=== PATIENT | female | born 1985 | race Hispanic/Latino ===

== ENCOUNTER 2019-09-04 15:48 | Outpatient (CLI) | payer OTHER ==
--- NOTE | 2019-09-04 16:35 | ULT ---
Obstetric sonogram HISTORY: evaluation. Second trimester gestation. FINDINGS: Single intrauterine gestation in breech presentation. Grade 0 placenta is posterior. Amniot ic fluid is within normal limits. Four-chamber heart motion at 147 bpm. Three-vessel cord shows a normal insertion. spine and kidneys are intact as visualized. No glenn s intracranial abnormalities are apparent. Measurements are as follows: Biparietal diameter 21 weeks 5 days Head circumference 22 weeks 2 days Abdominal circumference 22 weeks 4 days Femur length 23 weeks 3 days Estimated date of delivery based on today's sonogram 01/04/2020. IMPRESSION: Single viable intrauterine. Estimated gestational age 22 weeks 4 days.
== END 2019-09-04 15:49 | disposition home or self-care (01) ==
LOC: BICULT 15:48
PROVIDERS: ATTEND Family Medicine
DX: O09.522 Supervision of elderly multigravida, second trimester (principal); Z3A.22 22 weeks gestation of pregnancy
CPT/HCPCS: 76805

== ENCOUNTER 2019-11-26 14:27 | Emergency (ER) | payer OTHER ==
[2019-11-26 15:22] LABS: #Basophils 0.1 thou/uL (0.0-0.2); #Eosinphils 0.1 thou/uL (0.0-0.7); #Lymphocytes 2.6 thou/uL (1.20-3.40); #Monocytes 0.7 thou/uL (0.11-0.59); #Neutrophils 9.2 thou/uL (1.40-6.50); %Basophils 0.6 % (0.0-1.0); %Lymphocytes 20.4 % (21.0-51.0); %Monocytes 5.2 % (0.0-10.0); %Neutrophils 72.7 % (42.0-75.0); Hemoglobin 10.4 g/dL (12.0-16.0); Mean Corpuscular HGB CONC 32.9 g/dL (32.0-36.0); Mean Corpuscular Hemoglobin 26.1 pg (27.0-31.0); Mean Corpuscular Volume 79.3 fL (78.0-98.0); Mean Platelet Volume 8.5 fL (7.4-10.4); Platelet Count 217 thou/uL (130-400); RBC Distribution Width 14.8 % (11.5-14.5); Red Blood Cell (RBC) Count 3.99 mill/uL (4.20-5.40); White Blood Cell (WBC) Count 12.7 thou/uL (4.8-10.8)
[2019-11-26 15:38] LABS: BHCG - Serum POSITIVE (NEGATIVE); Pregs Control Background? CLEAR/WHITE (CLR/WHITE); Pregs Control Bar Appear? YES (CONTROL BAR)
[2019-11-26 15:43] LABS: ALT (SGPT) 8 U/L (8-55); AST (SGOT) 13 U/L (5-34); Albumin 3.6 g/dL (3.5-5.0); Alkaline Phosphatase 113 U/L (40-110); Anion Gap 13 mmol/L (10-20); BUN (Urea Nitrogen) 5 mg/dL (7.0-18.7); Bilirubin, Total 0.3 mg/dL (0.2-1.2); Calc. Creatinine Clearance 0 mL/min (70-130); Calcium 9.4 mg/dL (7.8-10.44); Carbon Dioxide 21 mmol/L (22-29); Chloride 106 mmol/L (98-107); Estimated GFR-MDRD Greater than 90; Globulin 3.3 g/dL (2.4-3.5); Glucose 93 mg/dL (70-105); Magnesium 1.7 mg/dL (1.6-2.6); Potassium 3.8 mmol/L (3.5-5.1); Protein, Total 6.9 g/dL (6.0-8.3); Sodium 136 mmol/L (136-145)
[2019-11-26 15:59] LABS: Thyroid Stimulating Hormone 0.9202 uIU/mL (0.35-4.94)
--- NOTE | 2019-11-26 16:13 | RAD ---
PORTABLE CHEST: History: Tachycardia. FINDINGS: The heart size and mediastinum are within normal limits. The lungs are clear of any infiltrates. No s ignificant bony findings. IMPRESSION: No active intrathoracic disease. POS: [facility]
== END 2019-11-26 17:00 | disposition home or self-care (01) ==
LOC: ERS 14:27
DX: O99.413 Diseases of the circulatory system complicating pregnancy, third trimester (principal); I49.3 Ventricular premature depolarization; O24.419 Gestational diabetes mellitus in pregnancy, unspecified control; Z3A.35 35 weeks gestation of pregnancy
CPT/HCPCS: 36415; 71045; 80053; 83735; 84443; 84703; 85025; 93005; 94760

== ENCOUNTER 2019-12-22 07:10 | Outpatient (CLI) | payer OTHER ==
[2019-12-23 12:17] LABS: SARS-CoV-2 MS2 Positive; SARS-CoV-2 N Gene Positive; SARS-CoV-2 S Gene Positive; SARS-CoV-2 orf1ab Positive
== END 2019-12-22 07:11 | disposition home or self-care (01) ==
LOC: LABSCS 07:10
PROVIDERS: ATTEND Family Medicine
DX: Z01.812 Encounter for preprocedural laboratory examination (principal); Z11.59 Encounter for screening for other viral diseases
CPT/HCPCS: 87635; U0003

== ENCOUNTER 2019-12-29 10:31 | Inpatient (IN) | payer OTHER ==
[2019-12-29 11:28] VITALS: BMI 38.7
[2019-12-29] MEDS ORDERED: Ondansetron PF 4 MG/2 ML Vial IVP PRN ×2 (11:39→17:25)
[2019-12-29] MEDS ORDERED: Acetaminophen 500 MG TAB PO PRN (11:39)
[2019-12-29] MEDS ORDERED: Misoprostol 200 MCG TAB PR PRN (11:39)
[2019-12-29] MEDS ORDERED: hydrALAZINE 20 MG/ML VIAL SLOW IVP PRN ×2 (11:39→17:25)
[2019-12-29] MEDS ORDERED: Butorphanol Tartrate 1 MG/ML VIAL SLOW IVP PRN (11:39)
[2019-12-29] MEDS ORDERED: Ibuprofen 800 MG TAB PO PRN (11:39)
[2019-12-29] MEDS ORDERED: Methylergonovine 0.2 MG/ML VIAL IM PRN (11:39)
[2019-12-29] MEDS ORDERED: Lidocaine 1% (PF) 30 ML VIAL SC PRN (11:39)
[2019-12-29] MEDS ORDERED: HYDROcodone/Acetaminophen 5/325 mg Tablet PO PRN ×3 (11:39→17:25)
[2019-12-29] MEDS ORDERED: Diphenoxylate HCl/Atropine Tablet PO PRN ×2 (11:39)
[2019-12-29] MEDS ORDERED: Carboprost 250 MCG/ML AMP IM PRN (11:39)
[2019-12-29] MEDS ORDERED: NS / Oxytocin 40 units/1000ml 1,000 ML IV PRN (11:39)
[2019-12-29] MEDS ORDERED: Lactated Ringer's 1,000 ML IV SCH (11:45)
[2019-12-29] MEDS ORDERED: Fentanyl 4 mcg/Bup 0.1% Cadd 100 ML ONE (11:55)
[2019-12-29 12:24] LABS: Hemoglobin 10.5 g/dL (12.0-16.0); Mean Corpuscular HGB CONC 31.7 g/dL (32.0-36.0); Mean Corpuscular Hemoglobin 23.8 pg (27.0-31.0); Mean Corpuscular Volume 75.2 fL (78.0-98.0); Mean Platelet Volume 9.3 fL (7.4-10.4); Platelet Count 246 thou/uL (130-400); RBC Distribution Width 15.8 % (11.5-14.5); Red Blood Cell (RBC) Count 4.43 mill/uL (4.20-5.40); White Blood Cell (WBC) Count 10.2 thou/uL (4.8-10.8)
[2019-12-29] MEDS ORDERED: Penicillin G Potassium 5 MILL.UNITS in Sodium Chloride 0.9% 100 ML IVPB SCH (12:30)
[2019-12-29] MEDS ORDERED: Bupivacaine/Epinephrine 0.25% 30 ML VIAL ONE (12:41)
[2019-12-29 13:02] LABS: Syphilis Antibody Nonreactive (Nonreactive); Syphilis Antibody Index 0.03 S/CO (<1.00 Non-Reactive)
[2019-12-29 13:06] LABS: HBSAg Index 0.18 S/CO (0-0.99); Hep B Surf Ag Non-Reactive S/CO (NonReactive)
[2019-12-29 13:17] LABS: Anion Gap 14 mmol/L (10-20); BUN (Urea Nitrogen) 7 mg/dL (7.0-18.7); Calc. Creatinine Clearance 202 mL/min (70-130); Calcium 8.2 mg/dL (7.8-10.44); Carbon Dioxide 19 mmol/L (22-29); Chloride 105 mmol/L (98-107); Estimated GFR-MDRD Greater than 90; Glucose 99 mg/dL (70-105); Potassium 3.9 mmol/L (3.5-5.1); Sodium 134 mmol/L (136-145)
[2019-12-29] MEDS ORDERED: Fentanyl 100 MCG/2 ML VIAL SLOW IVP SCH (13:50)
[2019-12-29] MEDS ORDERED: Fentanyl 100 MCG/2 ML VIAL ONE (13:50)
[2019-12-29] MEDS: Penicillin G 2.5 MILL.units 2.5 MILL.UNITS in Premix Bag 1 BAG IVPB SCH (17:24)
[2019-12-29] MEDS ORDERED: diphenhydrAMINE 25 MG CAP PO PRN (17:25)
[2019-12-29] MEDS ORDERED: Bisacodyl 10 MG SUPP PR PRN (17:25)
[2019-12-29] MEDS ORDERED: NS / Oxytocin 40 units/1000ml 1,000 ML IV SCH (17:25)
[2019-12-29] MEDS ORDERED: Benzocaine-Menthol 82.5 ML CAN TOP PRN (17:25)
[2019-12-29] MEDS ORDERED: Promethazine HCl 25 MG/ML VIAL IM PRN (17:25)
[2019-12-29] MEDS ORDERED: Milk Of Magnesia 30 ML UDCUP PO PRN (17:25)
[2019-12-29] MEDS ORDERED: Ondansetron PF 4 MG/2 ML Vial ONE (18:08)
[2019-12-29] MEDS: Docusate Calcium (SURFAK) 240 MG CAP PO SCH (22:41)
[2019-12-29] MEDS: Ibuprofen 800 MG TAB PO SCH (22:41)
[2019-12-30] MEDS: Ibuprofen 800 MG TAB PO SCH ×3 (05:38→21:21)
[2019-12-30 06:02] LABS: Hemoglobin 9.6 g/dL (12.0-16.0); Mean Corpuscular HGB CONC 30.7 g/dL (32.0-36.0); Mean Corpuscular Hemoglobin 23.1 pg (27.0-31.0); Mean Corpuscular Volume 75.4 fL (78.0-98.0); Mean Platelet Volume 9.1 fL (7.4-10.4); Platelet Count 242 thou/uL (130-400); RBC Distribution Width 15.6 % (11.5-14.5); Red Blood Cell (RBC) Count 4.16 mill/uL (4.20-5.40); White Blood Cell (WBC) Count 12.2 thou/uL (4.8-10.8)
[2019-12-30] MEDS ORDERED: Adacel (T-DAP) 0.5 ML SYRINGE IM ONE (09:00)
[2019-12-30] MEDS: Docusate Calcium (SURFAK) 240 MG CAP PO SCH ×2 (09:52→21:21)
[2019-12-30] MEDS: Prenatal Vitamin 1 TAB PO SCH (09:52)
[2019-12-30] MEDS: HYDROcodone/Acetaminophen 5/325 mg Tablet PO PRN ×2 (09:52→20:30)
[2019-12-30] MEDS: Ferrous Sulfate 325 MG TAB PO SCH ×2 (09:53→17:53)
[2019-12-30] MEDS: Penicillin G 2.5 MILL.units 2.5 MILL.UNITS in Premix Bag 1 BAG IVPB SCH (09:57)
[2019-12-30] MEDS ORDERED: Ondansetron PF 4 MG/2 ML Vial SLOW IVP PRN (11:58)
[2019-12-30] MEDS ORDERED: Ondansetron ODT 4 MG TAB PO PRN (12:34)
[2019-12-30] MEDS ORDERED: Ondansetron ODT 4 MG TAB SL PRN (12:45)
[2019-12-31] MEDS: Ibuprofen 800 MG TAB PO SCH ×2 (05:49→08:36)
[2019-12-31] MEDS: Ferrous Sulfate 325 MG TAB PO SCH (08:36)
[2019-12-31] MEDS: Prenatal Vitamin 1 TAB PO SCH (08:36)
[2019-12-31] MEDS: Docusate Calcium (SURFAK) 240 MG CAP PO SCH (08:36)
[2019-12-31 09:02] VITALS: BP 112/53; TEMP 98.6
== END 2019-12-31 12:20 | disposition home or self-care (01) | DRG 805 ==
LOC: L&D/OP 10:31 → L&D 16:45 → 3SW 19:53
PROVIDERS: ADMIT Family Medicine; ATTEND Family Medicine
PROC: 10E0XZZ Delivery of Products of Conception, External Approach (ICD-10-PCS; principal; 2019-12-29)
PROC: 0UQGXZZ Repair Vagina, External Approach (ICD-10-PCS; 2019-12-29)
PROC: 10907ZC Drainage of Amniotic Fluid, Therapeutic from Products of Conception, Via Natural or Artificial Opening (ICD-10-PCS; 2019-12-29)
DX: O98.52 Other viral diseases complicating childbirth (principal); U07.1 COVID-19; Z37.0 Single live birth; O24.420 Gestational diabetes mellitus in childbirth, diet controlled; O99.214 Obesity complicating childbirth; E66.9 Obesity, unspecified; Z3A.38 38 weeks gestation of pregnancy; O99.52 Diseases of the respiratory system complicating childbirth; J98.8 Other specified respiratory disorders
CPT/HCPCS: 36415; 51702; 80048; 85027; 86780; 86850; 86900; 86901; 87340; 99285; J0595; J2405; J2540; J3010; J3490; Q0162

== ENCOUNTER 2020-10-16 11:31 | Emergency (ER) | payer OTHER ==
[2020-10-16] MEDS ORDERED: Lidocaine 1% w/Epinephrine 1:100K 20 ML VIAL ONE ×2 (13:08)
== END 2020-10-16 13:39 | disposition home or self-care (01) ==
LOC: ERS 11:31
DX: N61.1 Abscess of the breast and nipple (principal)
CPT/HCPCS: 10060

== ENCOUNTER 2022-06-11 01:31 | Emergency (ER) | payer OTHER ==
[2022-06-11] MEDS ORDERED: Ketorolac Tromethamine 30 MG/ML VIAL ONE (01:45)
[2022-06-11 01:59] LABS: #Eosinphils 0.2 thou/uL (0.0-0.7); #Lymphocytes 4.2 thou/uL (1.20-3.40); #Monocytes 0.6 thou/uL (0.11-0.59); #Neutrophils 5.5 thou/uL (1.40-6.50); %Basophils 0.4 % (0.0-1.0); %Eosinophils 1.9 % (0.0-10.0); %Lymphocytes 39.9 % (21.0-51.0); %Monocytes 5.8 % (0.0-10.0); Hemoglobin 12.8 g/dL (12.0-16.0); Mean Corpuscular HGB CONC 33.6 g/dL (32.0-36.0); Mean Corpuscular Hemoglobin 29.5 pg (27.0-31.0); Mean Corpuscular Volume 87.8 fl (78.0-98.0); Platelet Count 246 10x3/uL (130-400); RBC Distribution Width 11.9 % (11.5-14.5); Red Blood Cell (RBC) Count 4.33 mill/uL (4.20-5.40); White Blood Cell (WBC) Count 10.6 10x3/uL (4.8-10.8)
[2022-06-11 02:01] LABS: BHCG - Serum Negative (NEGATIVE); Pregs Control Background? CLEAR/WHITE (CLR/WHITE); Pregs Control Bar Appear? YES (CONTROL BAR)
[2022-06-11 02:20] LABS: ALT (SGPT) 19 U/L (8-55); AST (SGOT) 28 U/L (5-34); Alkaline Phosphatase 69 U/L (40-110); Anion Gap 13 mmol/L (10-20); BUN (Urea Nitrogen) 12 mg/dL (7.0-18.7); Bilirubin, Total 0.6 mg/dL (0.2-1.2); Calc. Creatinine Clearance 0 mL/min (70-130); Calcium 8.8 mg/dL (7.8-10.44); Carbon Dioxide 21 mmol/L (22-29); Chloride 106 mmol/L (98-107); Estimated GFR 88; Glucose 147 mg/dL (70-105); Lipase 28 U/L (8-78); Potassium 3.2 mmol/L (3.5-5.1); Sodium 137 mmol/L (136-145)
[2022-06-11] MEDS ORDERED: Dicyclomine 20 MG/2 ML VIAL ONE (02:45)
== END 2022-06-11 03:21 | disposition home or self-care (01) ==
LOC: ERS 01:31
DX: K80.50 Calculus of bile duct without cholangitis or cholecystitis without obstruction (principal)
CPT/HCPCS: 36415; 74176; 80053; 83605; 83690; 84484; 84703; 85025; 93005; 96372; 96374; J1885

== ENCOUNTER 2022-09-11 04:51 | Observation (INO) | payer OTHER ==
[2022-09-11] MEDS ORDERED: Morphine 4 MG/ML VIAL SLOW IVP PRN (08:47)
[2022-09-11] MEDS ORDERED: Ondansetron PF 4 MG/2 ML Vial IVP PRN ×2 (08:47→08:53)
[2022-09-11] MEDS ORDERED: Ondansetron ODT 4 MG TAB PO PRN (08:48)
[2022-09-11] MEDS ORDERED: Morphine 2 MG/ML VIAL SLOW IVP PRN ×2 (08:56→17:11)
[2022-09-11] MEDS ORDERED: Lactated Ringer's 1,000 ML IV SCH (09:00)
[2022-09-11] MEDS ORDERED: Sodium Chloride 0.9% 1,000 ML IV SCH (09:00)
[2022-09-11] MEDS ORDERED: Ketorolac Tromethamine 30 MG/ML VIAL IVP PRN (09:13)
[2022-09-11] MEDS ORDERED: cefTRIAXone\\ROCEPHIN 1 GM in Sodium Chloride 0.9% 100 ML IVPB SCH (10:00)
[2022-09-11 10:09] VITALS: BMI 37.8
[2022-09-11] MEDS ORDERED: Bupivacaine HCl 0.5%/Epinephrine 1:200,000/PF 30 ml Vial ONE (10:54)
[2022-09-11] MEDS ORDERED: FENTANYL 50 MCG/ML 1 ML VIAL ONE ×2 (11:09→12:25)
[2022-09-11] MEDS ORDERED: HYDROmorphone 0.5 MG/0.5 ML SYRINGE ONE ×2 (11:10→12:40)
[2022-09-11] MEDS ORDERED: Scopolamine 1.5 mg/72 hour Patch ONE (11:15)
[2022-09-11] MEDS ORDERED: Ketorolac Tromethamine 30 MG/ML VIAL ONE (11:15)
[2022-09-11] MEDS ORDERED: Dexamethasone 20 MG/5 ML VIAL ONE (11:25)
[2022-09-11] MEDS ORDERED: Lidocaine 1% PF 5 ML VIAL ONE (11:25)
[2022-09-11] MEDS ORDERED: Rocuronium Bromide 10 MG/ML (10ML VIAL) ONE (11:25)
[2022-09-11] MEDS ORDERED: Glycopyrrolate 0.2 MG/ML 5 ML SYRINGE ONE (11:25)
[2022-09-11] MEDS ORDERED: PROPOFOL 200 MG/20 ML VIAL ONE (11:25)
[2022-09-11] MEDS ORDERED: Ondansetron PF 4 MG/2 ML Vial ONE (11:25)
[2022-09-11] MEDS ORDERED: SUGAMMADEX SODIUM 200 MG/2 ML VIAL ONE (11:27)
[2022-09-11] MEDS ORDERED: Ibuprofen 600 MG TAB PO PRN (12:57)
[2022-09-11] MEDS ORDERED: Acetaminophen 500 MG TAB PO PRN (12:57)
[2022-09-11] MEDS ORDERED: traMADol HCl 50 MG TAB PO PRN ×2 (12:57→13:15)
[2022-09-11] MEDS ORDERED: metroNIDAZOLE 500 MG in Premix Bag 1 BAG IVPB SCH (14:00)
[2022-09-11 17:05] VITALS: TEMP 98.6
[2022-09-11 17:23] VITALS: BP 109/69
== END 2022-09-11 18:28 | disposition home or self-care (01) ==
LOC: T4-B 07:43
PROVIDERS: ADMIT Internal Medicine; ATTEND Internal Medicine
PROC: 0FT44ZZ Resection of Gallbladder, Percutaneous Endoscopic Approach (ICD-10-PCS; principal; 2022-09-11)
DX: K80.13 Calculus of gallbladder with acute and chronic cholecystitis with obstruction (principal); N39.0 Urinary tract infection, site not specified
CPT/HCPCS: 88304; 96374; C1889; G0378; J0696; J1100; J1170; J1885; J2272; J2405; J2704; J3010; J3490; J7050